=== PATIENT | male | born 1970 | race Caucasian/White ===

== ENCOUNTER 2018-11-29 15:19 | Emergency (ER) | payer BC, OTHER ==
[2018-11-29] MEDS ORDERED: Diphtheria,Pertussis(Acell),Tetanus Vaccine 0.5 ML Syringe IM ONE (15:29)
--- NOTE | 2018-11-29 15:56 | EDM.PDOC ---
ED HPI GENERAL MEDICAL PROBLEM - General Chief Complaint: Upper Extremity Injury/Pain Stated Complaint: CUT HAND Time Seen by Provider: 11/29/18 15:25 Source of Information: Reports: Patient History Limitations: Reports: No Limitations, Intoxication - History of Present Illness INITIAL COMMENTS - FREE TEXT/NARRATIVE: Patient comes into the emergency department with complaint of right hand/finger laceration. Patient was at the [place] using a knife/anchor to throw into the water to cut seaweed when he went to remove the seaweed from the knife edge it caused a laceration on the index finger of his right hand. Patient was able to control the bleeding on scene with direct pressure. Family members transported the patient to the emergency department for the patient has been under the influence of alcohol. He admits to having 5-6 drinks in the past 5-6 hours. Patient denies any other injuries or concerns. He states that CMS and range of motion are intact. He denies any shortness of breath, chest pain, dizziness, lightheadedness, blurred vision, numbness and tingling in the finger arm. Onset: Sudden Location: Reports: Upper Extremity, Right Quality: Reports: Other Severity: Mild Improves with: Reports: None Worsens with: Reports: None Associated Symptoms: Reports: No Other Symptoms ED ROS GENERAL - Review of Systems Review Of Systems: ROS reveals no pertinent complaints other than HPI. Constitutional: Reports: No Symptoms HEENT: Reports: No Symptoms Respiratory: Reports: No Symptoms Cardiovascular: Reports: No Symptoms Endocrine: Reports: No Symptoms GI/Abdominal: Reports: No Symptoms : Reports: No Symptoms Musculoskeletal: Reports: No Symptoms Neurological: Reports: No Symptoms Psychiatric: Reports: No Symptoms Hematologic/Lymphatic: Reports: No Symptoms ED EXAM, GENERAL - Physical Exam Exam: See Below Exam Limited By: No Limitations General Appearance: Alert, WD/WN, No Apparent Distress Head: Atraumatic, Normocephalic Neck: Normal Inspection, Supple, Non-Tender Respiratory/Chest: No Respiratory Distress, No Accessory Muscle Use Cardiovascular: Normal Peripheral Pulses, Regular Rate, Rhythm Peripheral Pulses: 3+: Radial (L), Radial (R) GI/Abdominal: No Distention Extremities: Normal Inspection, Normal Range of Motion, Non-Tender, Other ( Laceration with minimal bleeding noted-right hand- proximal/lateral edge of index finger.) Neurological: Alert, Oriented, Normal Gait Psychiatric: Normal Affect, Normal Mood Skin Exam: Warm, Dry, Intact, Normal Color ED GENERAL MEDICAL PROCEDURES - Laceration/Wound Repair Right Lateral Proximal Digit - 2nd (Index) Lac/wound length in cm: 1 Appearance: Subcutaneous, Linear Distal NVT: Neuro & Vascular Intact, No Tendon Injury Anesthetic Type: Local Local Anesthesia - Lidocaine (Xylocaine): 1% Plain Local Anesthetic Volume: 4cc Skin Prep: Chlorhexidine (Hibiciens) Exploration/Debridement/Repair: Wound Explored, No Foreign Material Found Closed with: Sutures Suture Size: 4-0 # of Sutures: 5 Suture Type: Simple Sterile Dressing Applied: Nurse Tetanus Status Addressed: Yes Complications: No Course - Orders/Labs/Meds Orders: Active Orders 24 hr Category Date Time Status Vaccines to be Administered [RC] PER UNIT ROUTINE Care 11/29/18 15:29 Active Meds: Medications Discontinued Medications Generic Name Dose Route Start Last Admin Trade Name Freq PRN Reason Stop Dose Admin Diphtheria/Tetanus/Acell Pertussis 0.5 ml 11/29/18 15:29 11/29/18 15:36 Adacel IM 11/29/18 15:30 0.5 ml .ONCE ONE Administration Lidocaine HCl 5 ml 11/29/18 15:29 11/29/18 15:35 Xylocaine-Mpf 1% INJECT 11/29/18 15:30 5 ml ONETIME ONE Administration Departure - Departure Time of Disposition: 15:55 Disposition: Home, Self-Care 01 Condition: Good Clinical Impression: Laceration - Discharge Information *PRESCRIPTION DRUG MONITORING PROGRAM REVIEWED*: Not Applicable *COPY OF PRESCRIPTION DRUG MONITORING REPORT IN PATIENT ROD: Not Applicable Instructions: Laceration Care, Adult Forms: ED Department Discharge Additional Instructions: #1 keep the area clean and dry #2 keep hand from getting soiled-no hot tubs, Lasix, pools #3 Follow-up in the clinic in 10 days to have sutures evaluated and removed #4 can use Tylenol or ibuprofen as needed for pain and discomfort #5 follow-up as need if any signs of infection do arise next number #6 call with any questions or concerns - My Orders Last 24 Hours: My Active Orders 11/29/18 15:29 Vaccines to be Administered [RC] PER UNIT ROUTINE - Assessment/Plan Last 24 Hours: My Active Orders 11/29/18 15:29 Vaccines to be Administered [RC] PER UNIT ROUTINE Assessment:: 1. Laceration right hand index finger Plan: 1. Wound cleansing 2. Laceration repair completed 3. Tdap updated 4. wound dressing applied after wound repair 5. Education regarding activity, diet, OTC medications, suture removal, wound infection signs and follow up 6. All questions and concerns addressed prior to discharge
== END 2018-11-29 16:05 | disposition home or self-care (01) ==
LOC: VM.ED 15:19
DX: S61.210A Laceration without foreign body of right index finger without damage to nail, initial encounter (principal); Z23 Encounter for immunization; W26.0XXA Contact with knife, initial encounter
CPT/HCPCS: 12001; 90471; 90715; 99282; J2001